=== PATIENT | male | born 1950 | race Caucasian/White ===

== ENCOUNTER → 2021-06-13 10:12 | Outpatient (CLI) | payer MEDICARE, SELFPAY ==
[2021-06-13 13:33] LABS: COVID19 -Nasal RAPID Negative (Negative)
== END ==
PROVIDERS: Referring Provider Specialist; Visit Provider Specialist
DX: Z20.822 Contact with and (suspected) exposure to COVID-19 (principal); Z01.812 Encounter for preprocedural laboratory examination
CPT/HCPCS: 87635; C9803

== ENCOUNTER 2021-06-14 10:26 | Day surgery (SDC) | payer MEDICARE, SELFPAY ==
[2021-06-12 14:43] VITALS: BMI 30.4
[2021-06-14] VITALS (8 sets, daily range): BP systolic 96–155; BP diastolic 51–84; PULSE 59–69; RESP 10–18; TEMP 36–36.6; O2SAT 92–99; BMI 30.4
[2021-06-14] MEDS: LACTATED RINGERS 1,000 ML 42 ML IV (11:13)
[2021-06-14] MEDS: GABAPENTIN 300 MG CAPSULE PO (11:16)
[2021-06-14] MEDS: ACETAMINOPHEN 325 MG TABLET 975 MG PO (11:16)
--- NOTE | 2021-06-14 11:39 | PM.PREOP ---
Pre-operative Note COVID-19 COVID-19 status: Negative Result date/Date tested (Pos, Neg/Pending): 06/13/21 Interval Note History & Physical reviewed/Exam performed by Physician: Yes Changes to H&P: No
[2021-06-14] MEDS: CEFAZOLIN 1 GM VIAL 3 GM IV (12:18)
--- NOTE | 2021-06-14 12:27 | SUR.OPER ---
Supine on padded OR bed, head on pillow, arms secured on padded arm boards at <90 degrees abduction, legs uncrossed, safety belt at thigh, tape over blanket over lower legs.
[2021-06-14] MEDS: BUPIVACAINE 0.5% (PF) VIAL 30 ML INJ (12:41)
--- NOTE | 2021-06-14 13:39 | P.OP_ITS ---
Operative Date/Time/Diagnoses Date of procedure: 06/14/21 Time of procedure: 13:00 Pre-op diagnosis: Umbilical hernia reducible Post-op diagnosis: same Procedure & Clinicians Procedure: Repair with an underlay of mesh Same procedure as scheduled: Yes Indications: Patient with a symptomatic umbilical hernia Surgeon: Raji Costa Click Yes if Unassisted: Yes Anesthesia Type: General Operative Notes Findings: Well-circumscribed defect at the umbilicus. Closure Type: primary Specimen(s): none sent Prosthetic devices, grafts, tissues, transplants, or devices: 1.7 in diameter circular piece of mesh placed in the preperitoneal space Estimated Blood Loss (mL): 5 Procedure in detail: The patient was placed supine on the operating room table and underwent general LMA anesthesia. They were prepped and draped in the usual fashion. A curvilinear incision was made under the umbilicus and carried down to the level of the fascia. The fascia overlying was cleared of tissue. The opening was approximately 2 cm. I placed 1.7 in circular mesh under the fascia and secured it in the closure with interrupted 0 Ethibond sutures. The subcu was closed with interrupted 3 0 Vicryl and the skin was closed with a running for 4- 0 Vicryl subcuticular stitch and Steri-Strips. Dressing was applied and the patient was awakened and taken to the recovery area in good condition. The patient appeared to tolerate the procedure well. Complications: none Post-operative Condition: stable Disposition: PACU
[2021-06-14] MEDS: OXYCODONE IR 5 MG TABLET PO (14:08)
== END 2021-06-14 14:15 | disposition home or self-care (01) ==
PROVIDERS: Referring Provider Specialist; Visit Provider Specialist
PROC: (CPT 49585; principal; 2021-06-14 11:45)
DX: K42.9 Umbilical hernia without obstruction or gangrene (principal); E66.9 Obesity, unspecified; G62.9 Polyneuropathy, unspecified; I10 Essential (primary) hypertension; E78.5 Hyperlipidemia, unspecified; I25.10 Atherosclerotic heart disease of native coronary artery without angina pectoris; N52.9 Male erectile dysfunction, unspecified; Z68.30 Body mass index [BMI] 30.0-30.9, adult
CPT/HCPCS: 49585; C1781; J0690; J1100; J1885; J2405; J2704; J3010

== ENCOUNTER → 2022-12-25 09:29 | Outpatient (CLI) | payer MEDICARE, SELFPAY ==
--- NOTE | 2022-12-25 09:31 | DI.NM.S_ITS ---
PROCEDURE: NM GASTRIC EMPTYING STUDY RADIOPHARMACEUTICAL: 1 mCi Tc-99m sulfur colloid in an egg sandwich. INDICATIONS: Constipation, unspecified TECHNIQUE: A Tc-99m labeled sulfur colloid labeled egg sandwich or oatmeal was served to the patient. Anterior and posterior planar images of the abdomen were obtained at 0 minutes and 30 minutes, then at hourly intervals up to 4 hours. The patient was upright and ambulating during the interval. COMPARISON: None. FINDINGS: The stomach has normal size, morphology, and position. There is normal emptying of solid gastric contents from the stomach by visual inspection. No gastroesophageal reflux is visualized. The percentage of tracer retained at specific time points are as follows: Time point Percent gastric retention Normal range 30 minutes 76% 70% or more 1 hour 44% 30% to 90% 2 hours 25% 60% or less 3 hours 18% 30% or less 4 hours 3% 10% or less IMPRESSION: Normal gastric emptying. Dictated by: Javan Cao M.D. on 12/25/2022 at 13:53 Approved by: Javan Cao M.D. on 12/25/2022 at 13:54
== END ==
PROVIDERS: PCP Physician Assistant; Referring Provider Physician Assistant; Visit Provider Physician Assistant
DX: K59.00 Constipation, unspecified (principal)
CPT/HCPCS: 78264; A9541

== ENCOUNTER → 2023-01-10 07:43 | Outpatient (CLI) | payer MEDICARE, SELFPAY ==
--- NOTE | 2023-01-10 | DI.MRI.S_ITS ---
PROCEDURE: MR FOOT RT WO/W CON INDICATIONS: PAIN IN RIGHT FOOT / PAINFUL FOREIGN BODY TECHNIQUE: Noncontrast sagittal T1 spin echo and T2 fast spin echo with fat saturation, long-axis T1 spin echo and T2 fast spin echo with fat saturation; short-axis T1 spin echo, proton density fast spin echo, and T2 fast spin echo with fat saturation through the forefoot. Post-contrast short axis, long axis, and sagittal T1 spin echo with fat saturation through the forefoot. COMPARISON: None. FINDINGS: Image quality: Excellent. Bones and joints: No suspicious osseous enhancement. No bone marrow contusions or metatarsal stress fractures. The sesamoid bones appear in expected positions, without internal edema. No metatarsophalangeal joint degeneration. No intraosseous lesions. Soft tissues: There is an ill-defined region of enhancement and T2 signal elevation at the plantar aspect of the 2nd metatarsal head, measuring roughly 20 mm transverse by 10 mm craniocaudal by 14 mm anteroposterior. Visualized flexor and extensor tendons appear intact, without tenosynovitis. The distal insertions of the peroneus brevis and longus tendons appear intact. The principal Lisfranc ligament appears intact. No soft tissue ganglion cysts or bursal fluid collections. Sagittal images demonstrate no evidence for plantar plate tears. IMPRESSION: 1. Abnormal soft tissue signal and enhancement within the plantar soft tissues as described above, which may indicate postsurgical sequelae secondary to recent foreign body removal, or evolving infection. No drainable fluid collection. 2. No abnormal osseous signal to indicate osteomyelitis. Dictated by: Marcial Khan M.D. on 01/10/2023 at 9:25 Approved by: Marcial Khna M.D. on 01/10/2023 at 9:28
== END ==
PROVIDERS: PCP Physician Assistant; Referring Provider Podiatrist; Visit Provider Podiatrist
DX: M79.671 Pain in right foot (principal)
CPT/HCPCS: 73720

== ENCOUNTER → 2024-01-09 16:33 | Outpatient (CLI) | payer OTHER, SELFPAY ==
--- NOTE | 2024-01-09 16:35 | DI.MRI.S_ITS ---
PROCEDURE: MR THORACIC SPINE WO CON INDICATIONS: PERIPHERAL NEUROPATHY, PVD TECHNIQUE: Noncontrast sagittal T1 spine echo and T2 fast spin echo, sagittal STIR, and T2 fast spin echo through the thoracic spine. COMPARISON: Merged With [facility], MR, MR LUMBAR SPINE WO CON, 01/09/2024, 17:03. [facility] Outside Film, MR, MR THORACIC SPINE WITH/WITHOUT CONTRAST, 11/01/2020, 18:50. Outside Facility, RG, MRI T-SPINE W/WO CONTRAST, 11/01/2020, 18:50. This dictation was delayed, awaiting outside prior images, which have now arrived. FINDINGS: Image quality: Excellent. Alignment and Curvature: No pneumothorax or pleural effusions are seen. The central airways are patent. No focal AP alignment abnormality is seen. Bone Marrow: Marrow is of normal overall signal. No acute vertebral body compression fractures. Spinal Cord: Visualized spinal cord is normal in size and signal. Paraspinous Soft Tissues: No paravertebral masses. Miscellaneous: Note is made of moderate epidural lipomatosis posteriorly, as on series 7, image 8, which causes a baseline degree of central canal narrowing throughout the mid thoracic spine. Multiple levels of [id number] neural foraminal narrowing can be seen within the mid to lower thoracic spine. At the T11-T12 level, there is moderate to severe bilateral neural foraminal narrowing seen. No significant focal level of central canal narrowing can be seen. IMPRESSION: Moderate to severe bilateral neural foraminal narrowing can be seen at the T11-T12 level, which is similar in retrospect to the prior outside 2020 examination. There is epidural lipomatosis, which causes a baseline degree of central canal narrowing throughout the midthoracic spine. Dictated by: Javan Cao M.D. on 01/20/2024 at 13:41 Approved by: Javan Cao M.D. on 01/20/2024 at 13:44
--- NOTE | 2024-01-09 16:35 | DI.MRI.S_ITS ---
PROCEDURE: MR LUMBAR SPINE WO CON INDICATIONS: PERIPHERAL NEUROPATHY, PVD TECHNIQUE: Noncontrast sagittal T1 spin echo and T2 fast echo, sagittal STIR, and T2 fast spin echo through the lumbar spine. In cases with scoliosis, additional coronal T2 fast spin echo may be performed. COMPARISON: Outside Facility, RG, MRI T-SPINE W/WO CONTRAST, 11/01/2020, 18:50. [facility] Outside Film, MR, MR THORACIC SPINE WITH/WITHOUT CONTRAST, 11/01/2020, 18:50. [facility], MR, MR THORACIC SPINE WO CON, 01/09/2024, 17:03. This dictation was delayed, awaiting outside prior images, which have now arrived. FINDINGS: Image quality: Excellent. Alignment and Curvature: There is normal bony alignment. Bone Marrow: Marrow is of normal overall signal. No acute vertebral body compression fractures. Spinal Cord: Conus medullaris terminates at the L1-L2 level. Visualized cord demonstrates normal signal and size. Paraspinous Soft Tissues: No paravertebral masses. T12-L1: Normal appearance. L1-L2: Normal appearance. L2-L3: Mild loss of disc height is seen. Loss of disc signal is seen. Mild to moderate disc bulge is seen. There is a superimposed central disc protrusion. Mild facet joint hypertrophy is seen. Mild to moderate bilateral neural foraminal narrowing can be seen. Mild central canal narrowing is seen. The degenerative changes are slightly progressed compared to 2020. L3-L4: The disc height is well-preserved. Loss of disc signal is seen at this level. Moderate generalized disc bulge is seen. There is a superimposed central disc protrusion. Moderate facet joint hypertrophy is seen. There is at least moderate left-sided and moderate right-sided neural foraminal narrowing. Moderate central canal narrowing is seen. There is slight progression of degenerative change compared to 2020. L4-L5: The disc height is well-preserved. Loss of disc signal is seen at this level. Moderate generalized disc bulge is seen. There is a superimposed central disc protrusion. Mild to moderate facet hypertrophy is seen. There is at least moderate bilateral neural foraminal narrowing seen. There is a degree of compression seen upon the exiting nerve roots. Minimal central canal narrowing is seen. When comparison is made with the prior images, these findings are similar. L5-S1: The disc height is well-preserved. Loss of disc signal is seen at this level. Mild generalized disc bulge is seen. Moderate facet joint hypertrophy is seen. There is moderate to severe bilateral neural foraminal narrowing seen, with an associated degree of compression seen upon the exiting nerve roots. No central canal narrowing is seen. When comparison is made with the prior images, these findings are similar. IMPRESSION: Multiple levels of lumbar spine degenerative change can be seen, which are worst inferiorly. There is mild progression of degenerative change compared to 202 at L2-L3 and L3-L4. Dictated by: Javan Cao M.D. on 01/20/2024 at 13:35 Approved by: Javan Cao M.D. on 01/20/2024 at 13:40
== END ==
PROVIDERS: PCP Physician Assistant; Referring Provider Physical Medicine & Rehabilitation; Visit Provider Physical Medicine & Rehabilitation
DX: M47.816 Spondylosis without myelopathy or radiculopathy, lumbar region (principal); M47.817 Spondylosis without myelopathy or radiculopathy, lumbosacral region; M48.04 Spinal stenosis, thoracic region; G60.9 Hereditary and idiopathic neuropathy, unspecified; M54.50 Low back pain, unspecified; I73.9 Peripheral vascular disease, unspecified
CPT/HCPCS: 72146; 72148